=== PATIENT | female | born 1960 | race Caucasian/White ===

== ENCOUNTER 2021-03-31 01:39 | Day surgery (SDC) | payer BC, SELFPAY ==
[2021-03-25 12:09] VITALS: BMI 38.6
--- NOTE | 2021-03-25 12:24 | PC.NURSE ---
Report to the Outpatient Waiting Room, entrance under the green pavilion located off [facility], at time 0815 on date 03/28/21. OR Time: 1015. - You will be asked a series of questions to screen for COVID 19 for your protection. - A mask is required within the hospital. - No visitors are allowed at this time. Preoperative COVID Testing Requirements: No COVID Test needed if: (proof is required; if not received patient will have Rapid Test prior to entry) - Patient has received COVID Vaccine at least 14 days prior to procedure date or - Patient has positive COVID test result within last 90 days of surgery date. COVID Test needed if above criteria is not met Patients may have clear liquids (water, carbonated beverages, clear teas, apple juice) until 3 hours prior to surgery with a maximum of 20 ounces. - No food from midnight until time of surgery Take the following medications with a SIP of water the morning of surgery: ATENOLOL, PRISTIQ, XANAX, TRAMADOL, TYLENOL (IF NEEDED) Medications to discontinue per physician: VITAMINS/SUPPLEMENTS Date to take last dose: 03/27/21 Please no make-up, nail hungarian, hairspray, perfume, deodorant, or body powder the day of surgery. No jewelry (including any body piercings) or valuables the day of surgery, leave them at home. Please take a shower or bath the night before, or the morning of, surgery with an antibacterial soap. Wear comfortable, loose fitting clothing. - Jewelry must be removed prior to entering the operating room. Rings and piercings that are not removed may be cut off. - The hospital will not accept responsibility for valuables. - Please leave all valuables, including medications, at home the day of surgery. If you are going home after surgery, a licensed cdl a driver must drive you home. - NO public transportation without another adult. - We recommend that an adult stay with you for 24 hours following discharge. - We also recommend that you do not drive, make important decision, drink alcoholic beverages, or take any drugs that were not prescribed by your health care provider for at least 24 hours after your discharge time. Follow any additional instructions given to you from your surgeon. Telephone instructions given to TORRES VAZQUEZ and asked if any additional questions and then verbalized understanding. Patient advised to call surgeon office or pre surgery nurse liaison [phone] if any additional questions.
--- NOTE | 2021-03-28 08:18 | P.HP_ITS ---
H&P: HPI History of Present Illness Date/Time: 03/28/21 08:18 60 yo with TRACEY Chief Complaint: TRACEY Review of Systems Review of Systems: All systems reviewed & are unremarkable except as noted in HPI and below [facility] Social History Social History Smoking status: Never smoker Alcohol intake: current Alcohol use details: RARE Substance use: never Substance use type: does not use Living arrangements: with family Spiritual care concerns: No Meds Home Medications and Allergies Home Medications Medication Instructions Recorded Confirmed Type acetaminophen [Tylenol Extra 1,000 mg PO DAILY 03/25/21 03/25/21 History Strength] alprazolam [Xanax] 0.5 mg PO BID PRN 03/25/21 03/25/21 History atenolol 25 mg PO DAILY 03/25/21 03/25/21 History calcium citrate-vitamin D3 1 tablet PO DAILY 03/25/21 03/25/21 History [Citracal plus D] cholecalciferol (vitamin D3) 125 mcg PO DAILY 03/25/21 03/25/21 History [Vitamin D3] desvenlafaxine succinate [Pristiq] 50 mg PO DAILY 03/25/21 03/25/21 History glucosamine-chondroitin [Osteo 1 tablet PO DAILY 03/25/21 03/25/21 History Bi-Flex] latanoprost 1 drp EACH EYE QPM 03/25/21 03/25/21 History lisinopril 20 mg PO DAILY 03/25/21 03/25/21 History loratadine [Claritin] 10 mg PO DAILY 03/25/21 03/25/21 History mv-mn-folic ac-vit K-herb 289 1 tablet PO DAILY 03/25/21 03/25/21 History [Alive Once Daily Women 50 Plus] pseudoephedrine HCl [Sudafed 12 120 mg PO Q12H PRN 03/25/21 03/25/21 History Hour] rosuvastatin [Crestor] 5 mg PO DAILY 03/25/21 03/25/21 History tramadol 50 mg PO Q6H PRN 03/25/21 03/25/21 History vitamin A-vitamin C-vit E-min 1 tablet PO DAILY 03/25/21 03/25/21 History [Ocuvite] Allergies Allergy/AdvReac Type Severity Reaction Status Date / Time butorphanol Allergy Unknown Other Verified 03/25/21 12:05 codeine Allergy Unknown Hallucinati Verified 03/25/21 12:05 ng ibuprofen Allergy Unknown Other Verified 03/25/21 12:05 oxycodone Allergy Unknown Hallucinati Verified 03/25/21 12:05 ng Exam Narrative: + urethral mobilty 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
[2021-03-31] VITALS (9 sets, daily range): BP systolic 138–162; BP diastolic 63–94; PULSE 78–100; RESP 7–18; TEMP 36.2–36.9; O2SAT 94–100
--- NOTE | 2021-03-31 07:20 | WPDHPUPDATE1 ---
History and Physical Update Update Date/Time: 03/31/21 07:20 History and Physical has been reviewed, including an updated exam of the patient. There are NO changes in the patient's condition. Risks, benefits, and alternatives have been discussed and questions answered. Patient agrees to proceed with procedure.
--- NOTE | 2021-03-31 07:33 | WPDHPUPDATE1 ---
History and Physical Update Update Date/Time: 03/31/21 07:33 History and Physical has been reviewed, including an updated exam of the patient. There are NO changes in the patient's condition. Risks, benefits, and alternatives have been discussed and questions answered. Patient agrees to proceed with procedure.
--- NOTE | 2021-03-31 07:34 | PM.IMHP ---
H&P: HPI History of Present Illness Date/Time: 03/31/21 07:34 The patient is a 60-year-old 3 para 3 being admitted for total vaginal hysterectomy possible bilateral salpingo-oophorectomy anterior-posterior vaginal repair secondary to pelvic organ prolapse with genuine stress incontinence. In addition the patient is having a transobturator taping per Dr. Watkins. Risks of the procedure including infection, bleeding, injury to internal organs (bowel, bladder, ureters, etc.), DVT, and general anesthesia were reviewed. In addition the risks of mesh were reviewed including erosion and urinary retention. In addition, the risks of failure of the is anterior and posterior appear as well as failure of the TOT were reviewed. Patient voices understanding and agrees to proceed. Chief Complaint: Pelvic organ prolapse and stress incontinence Review of Systems Genitourinary: Genitourinary: Reports nocturia and Reports other (Constant pelvic pressure; stress incontinence) PMFSH Past Medical History Medical History (Updated 03/31/21 @ 07:43 by Adenike Boyd MD) Anxiety Depression Elevated cholesterol HTN (hypertension) (normal spontaneous vaginal delivery) x3 Surgical History Surgical History (Updated 03/31/21 @ 07:40 by Adenike Boyd MD) H/O bone graft Left hip H/O hand surgery Social History Social History Smoking status: Never smoker Alcohol intake: current Alcohol use details: RARE Substance use: never Substance use type: does not use Living arrangements: with family Spiritual care concerns: No Meds Home Medications and Allergies Home Medications Medication Instructions Recorded Confirmed Type acetaminophen [Tylenol Extra 1,000 mg PO DAILY 03/25/21 03/25/21 History Strength] alprazolam [Xanax] 0.5 mg PO BID PRN 03/25/21 03/25/21 History atenolol 25 mg PO DAILY 03/25/21 03/25/21 History calcium citrate-vitamin D3 1 tablet PO DAILY 03/25/21 03/25/21 History [Citracal plus D] cholecalciferol (vitamin D3) 125 mcg PO DAILY 03/25/21 03/25/21 History [Vitamin D3] desvenlafaxine succinate [Pristiq] 50 mg PO DAILY 03/25/21 03/25/21 History glucosamine-chondroitin [Osteo 1 tablet PO DAILY 03/25/21 03/25/21 History Bi-Flex] latanoprost 1 drp EACH EYE QPM 03/25/21 03/25/21 History lisinopril 20 mg PO DAILY 03/25/21 03/25/21 History loratadine [Claritin] 10 mg PO DAILY 03/25/21 03/25/21 History mv-mn-folic ac-vit K-herb 289 1 tablet PO DAILY 03/25/21 03/25/21 History [Alive Once Daily Women 50 Plus] pseudoephedrine HCl [Sudafed 12 120 mg PO Q12H PRN 03/25/21 03/25/21 History Hour] rosuvastatin [Crestor] 5 mg PO DAILY 03/25/21 03/25/21 History tramadol 50 mg PO Q6H PRN 03/25/21 03/25/21 History vitamin A-vitamin C-vit E-min 1 tablet PO DAILY 03/25/21 03/25/21 History [Ocuvite] Allergies Allergy/AdvReac Type Severity Reaction Status Date / Time butorphanol Allergy Unknown Other Verified 03/25/21 12:05 codeine Allergy Unknown Hallucinati Verified 03/25/21 12:05 ng ibuprofen Allergy Unknown Other Verified 03/25/21 12:05 oxycodone Allergy Unknown Hallucinati Verified 03/25/21 12:05 ng Exam Const: General: healthy appearing and alert Orientation/consciousness: patient oriented x3 GI: GI Palp: Yes Soft to palpation, No Tenderness to palpation present (GI) and No Palpable mass present : External Female Exam: normal external appearance Speculum Exam - Vagina: normal vaginal discharge and other (Cystocele; rectocele) Speculum Exam - Cervix: normal appearance of the cervix Bimanual exam- vagina & uterus: uterine size normal, consistency normal and other (Uterus +2 from the spines with Valsalva) Bimanual Exam- Adnexa, other: normal adnexae and No adnexal tenderness Neuro: General: patient oriented x3 Assessment and Plan Assessment and plan (1) Uterine prolapse: Code(s): N81.4
[2021-03-31] MEDS: ACETAMINOPHEN 500 MG TABLET 1000 MG PO (09:22)
[2021-03-31] MEDS: LACTATED RINGERS 1,000 ML 30 ML IV CONT ×2 (09:34→14:04)
--- NOTE | 2021-03-31 10:50 | WPDANESEPPF ---
Anes - Initial Pre Proc Eval Procedure: Operation Date: 03/31/21 10:45 Proposed Procedures p Total Vaginal Hysterectomy, Possible Bilateral Salpingo-Oophorectomy, Anterior and Posterior Vaginal Repair - Adenike Boyd MD s Urethral Sling - Chemo Watkins MD Date/Time: 03/31/21 10:50 Surgeon: Adenike Boyd MD Pre Op Diagnosis: cystocele, rectocele, stress incont Patient Data Age: 60 Gender: F Height: 1.56 m Weight: 95.6 kg Last Vital Signs Temp 36.4 C 03/31/21 09:01 Pulse 78 03/31/21 09:01 Resp 16 03/31/21 09:01 BP 146/80 H 03/31/21 09:01 Pulse Ox 97 03/31/21 09:01 Allergies Allergy/AdvReac Type Severity Reaction Status Date / Time butorphanol Allergy Intermediate Other Verified 03/31/21 09:13 codeine Allergy Intermediate Palpitation Verified 03/31/21 09:13 s ibuprofen Allergy Intermediate Other Verified 03/31/21 09:13 oxycodone Allergy Intermediate Hallucinati Verified 03/31/21 09:13 ng adhesive tape Allergy Mild Rash Verified 03/31/21 09:18 Home Medications Medication Instructions Recorded Confirmed Type acetaminophen [Tylenol Extra 1,000 mg PO DAILY 03/25/21 03/31/21 History Strength] alprazolam [Xanax] 0.5 mg PO BID PRN 03/25/21 03/31/21 History atenolol 25 mg PO DAILY 03/25/21 03/31/21 History calcium citrate-vitamin D3 1 tablet PO DAILY 03/25/21 03/31/21 History [Citracal plus D] cholecalciferol (vitamin D3) 125 mcg PO DAILY 03/25/21 03/31/21 History [Vitamin D3] desvenlafaxine succinate [Pristiq] 50 mg PO DAILY 03/25/21 03/31/21 History glucosamine-chondroitin [Osteo 1 tablet PO DAILY 03/25/21 03/31/21 History Bi-Flex] latanoprost 1 drp EACH EYE QPM 03/25/21 03/31/21 History lisinopril 20 mg PO DAILY 03/25/21 03/31/21 History loratadine [Claritin] 10 mg PO DAILY 03/25/21 03/31/21 History mv-mn-folic ac-vit K-herb 289 1 tablet PO DAILY 03/25/21 03/31/21 History [Alive Once Daily Women 50 Plus] pseudoephedrine HCl [Sudafed 12 120 mg PO Q12H PRN 03/25/21 03/31/21 History Hour] rosuvastatin [Crestor] 5 mg PO DAILY 03/25/21 03/31/21 History tramadol 50 mg PO Q6H PRN 03/25/21 03/31/21 History vitamin A-vitamin C-vit E-min 1 tablet PO DAILY 03/25/21 03/31/21 History [Ocuvite] Laboratory Tests 03/31/21 09:06 Blood Type A Negative Antibody Screen Pending Patient hx anesthesia problems: none Family hx anesthesia problems: none Results Review: All pre-operative results and documents have been reviewed as part of the pre-operative evaluation. PMFSH Past Medical History Medical History Anxiety Depression Elevated cholesterol HTN (hypertension) (normal spontaneous vaginal delivery) x3 Surgical History Surgical History H/O bone graft Left hip H/O hand surgery Social History Social History Smoking status: Never smoker Alcohol intake: current Alcohol use details: RARE Substance use: never Substance use type: does not use Living arrangements: with family Spiritual care concerns: No Anes - Eval Final PreProcedure Day of Procedure 03/31/21 10:50 Patient weight: obese Heart: regular rate and rhythm Lungs: clear to auscultation Airway: Mallampati scale class II Neurological: alert and oriented Last oral intake: >/= 8 hours ASA classification: III Emergent: no Anesthetic plan: proceed Anesthesia type and monitoring: general ETT and standard monitoring Results Review: All pre-operative results and documents have been reviewed as part of the pre-operative evaluation. Informed Consent: The patient's anesthetic plan and its attendant risks and benefits were discussed with the patient/family/POA. Questions were solicited and answers provided to the satisfaction of the patient/family/POA.
--- NOTE | 2021-03-31 10:51 | SUR.PREOP ---
1050 informed pt delay in procedure.
[2021-03-31] MEDS: ceFAZolin 2 GM/D5W 50 ML 2 GM/50 ML BAG IVPB (11:50)
--- NOTE | 2021-03-31 13:25 | W.PM.PROC2 ---
Procedure Note - Detailed Date of Procedure 03/31/21 Pre-op Diagnosis cystocele, rectocele, uterine prolapse, stress incontinence Post-op Diagnosis same (Plus enterocele) Procedure Performed Total vaginal hysterectomy anterior-posterior vaginal repair see Dr. Kong op note for transobturator taping Surgeon Adenike Boyd MD Anesthesia general Findings Second degree small cystocele; rectocele 2cm past the introitus the rest; upper portion of the rectocele was noted to also have an enterocele; uterus prolapsed to +2 from the spines Description of Procedure The patient was taken to the operating room and placed under anesthesia in the dorsal lithotomy position. She was prepped and draped in the usual sterile fashion. The cervix is grasped on the anterior lip with a tenaculum and the short weighted speculum was placed posterior. The Honey retractor was used anteriorly. The cervix is injected in a circumferential manner with 1% lidocaine with epinephrine. The vaginal mucosa is a incised in a circumferential manner around the cervix. The vaginal mucosa was dissected off anteriorly using sharp and blunt dissection until the peritoneum is entered. The Honey retractors then replaced. The posterior vaginal mucosa is dissected off the cervix using sharp and blunt dissection until the peritoneum was entered. The long curved weighted speculum was then placed. The uterosacral and cardinal ligaments are serially clamped, transected, and suture ligated with 0 Vicryl. These were tagged for future use. The uterine vessels are clamped, transected, and suture ligated with 0 Vicryl. The utero-ovarian ligaments and round ligaments are clamped, transected, and suture ligated with 0 Vicryl. The tubes and ovaries are not visible except for the proximal portion of the tube. Grasping this pedicle does not bring the tube or ovary into the field. Decision was made to leave tubes and ovaries. All pedicles appeared hemostatic. The short weighted speculum was replaced and the posterior peritoneum grasped with a Peon. The anterior peritoneum was grasped with a Peon. The peritoneum was closed using 0 Ethibond in a pursestring fashion incorporating the previously tagged uterosacral and cardinal ligaments. The vaginal cuff was then closed using 0 Vicryl in a running locked fashion. Attention is turned to the rectocele where at 5 and 7:00 a.m. on the hymenal ring is grasped with Allis clamps. The intervening tissue was incised with a scalpel and a triangular portion of tissue was excised using a scalpel. The vaginal mucosa is injected in the midline and dissected off the midline using Metzenbaum scissors. The vaginal mucosa is incised and clasped with Allis clamps until the apex was reached and then a single Allis clamp was placed at the apex. The lateral vaginal mucosa was dissected off the rectocele and enterocele using sharp and blunt dissection. The enterocele and rectocele are reduced using 0 Ethibond interrupted where spinal mattress sutures. Once the right suárez is complete the excess vaginal mucosa is excised using Metzenbaum scissors. The vaginal mucosa was closed using 0 Vicryl in a running locked fashion. Once the hymenal ring was reached the suture was placed below the hymenal ring and two deep stitches were used to bring the perineal body back together. The same suture was then used to close the perineum in a subcuticular fashion. Attention is then turned to the cystocele the base is grasped at 5 and 7:00 a.m. with the intervening tissue incised with a scalpel. The midline is injected with 1% lidocaine with epinephrine. The cystocele was dissected off the midline using Metzenbaum size. The mucosa is incised and grasped with Allis clamps. The dissection was continued until approximately 2cm below the urethra. An Allis clamp was placed at the midline. Lateral dissection was performed using sharp and blunt dissection. The cystocele was reduced using 0 Ethib
[2021-03-31] MEDS: BUPIVACAINE/EPINEPHRINE 0.25% 10 ML VIAL INFILTRATE (13:40)
[2021-03-31] MEDS: LIDO 1%/EPINEPHRINE/PF 1:200,000 30 ML VIAL XX (13:41)
--- NOTE | 2021-03-31 14:04 | P.OP_ITS ---
Procedure Note - Detailed Date of Procedure 03/31/21 Pre-op Diagnosis Stress incontinence Post-op Diagnosis same Procedure Performed mid urethral sling cystoscopy Surgeon Chemo Watkins MD Indications This is a female with confirm stress urinary incontinence. She desires surgical correction. She understands the risks of bleeding, infection, injury to the urinary tract, vaginal mesh extrusion, urinary tract mesh erosion, obstructive voiding requiring a secondary procedure, hip and leg pain, dyspareunia, inability to improve overactive bladder symptoms. She agrees to proceed. 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 A time-out performed. I marked out the site of the inner thigh incisions. I anesthetized the skin and made those incisions. I anesthetized the anterior vaginal wall over the mid urethra. I made a 1 cm incision. Of note she has significant atrophic vaginitis and poor quality tissue. I dissected out laterally taking great care not to injure the urethra or vaginal wall. I passed the helical trocars. First on the left. Then on the right. I did this from the thigh incision towards the vaginal incision. The sling was connected to the trocars and brought out through the thigh incision. I tensioned the sling appropriately. I cut and the plastic sheaths. I then closed the incision with 2 0 Vicryl. On cystoscopy there is no tumors or surgical artifact. There was no surgical artifact in the urethra. Both ureters were seen to excrete clear yellow urine. I cut the excess sling material. Close incisions with glue. She was awakened and transferred to the PACU in stable condition. Implants Urethral sling Estimated Blood Loss 50 Drains No Packing No Pathology none sent Complications No immediate complications Condition stable Disposition PACU
[2021-03-31] MEDS: DEXTROSE 5%/LACTATED RINGERS 1,000 ML 125 ML IV CONT (15:31)
--- NOTE | 2021-03-31 15:47 | OBPPTRN ---
1515 Patient transferred to post room #279 via bed. Oriented to unit, room, information board, admission packet and security measures. Patient verbalizes understanding.
[2021-03-31] MEDS: LATANOPROST 0.005% OP SOLN 2.5 ML BTL 1 DROP EACH EYE (17:54)
[2021-04-01] MEDS: ACETAMINOPHEN 500 MG TABLET 1000 MG PO ×2 (02:04→09:30)
[2021-04-01 05:46] VITALS: BP 118/63; PULSE 97; RESP 18; TEMP 36.9
--- NOTE | 2021-04-01 07:44 | PM.GYNPNOP ---
L D RN - A/P Postoperative Procedures: Procedures Operation Date: 03/31/21 10:45 Actual Procedure Side Surgeon p Total Vaginal Hysterectomy, Possible Bilateral Salpingo-Oophorectomy, Anterior and Posterior Vaginal Repair Not Applicable Adenike Boyd MD s Urethral Sling Not Applicable Chemo Watkins MD Postoperative day: 1 Postoperative status: doing well and other (Voided x 1; ambulating well; tolerating diet) Postoperative plan: routine post-op care and discharge Time Spent With Patient Time: Total time spent is greater than 50% in coordination of care (as documented) at patient's floor/unit and/or counseling patient: Time with patient: less than 15 minutes L D RN- PN:Subj Post-Op Subjective Date/time seen: 04/01/21 07:44 Subjective: patient has no complaints, pain is well controlled and patient is tolerating oral intake Exam Narrative: abdomen soft, nt L D RN - PN: Obj Data Vital Signs Vital Signs: Vital Signs - 24 hr 03/31/21 09:01 03/31/21 14:04 03/31/21 14:15 Temperature 97.6 F 97.9 F Pulse Rate 78 100 96 Respiratory Rate 16 16 7 L Blood Pressure 146/80 H 162/87 H 147/84 H Pulse Oximetry 97 97 98 03/31/21 14:30 03/31/21 14:45 03/31/21 15:00 Temperature Pulse Rate 97 100 99 Respiratory Rate 17 16 12 Blood Pressure 139/94 H 147/86 H 140/79 Pulse Oximetry 100 94 95 03/31/21 15:15 03/31/21 19:03 03/31/21 23:50 Temperature 97.1 F L 98.2 F 98.5 F Pulse Rate 95 97 87 Respiratory Rate 18 16 18 Blood Pressure 153/81 H 144/63 H 138/76 Pulse Oximetry 94 99 04/01/21 05:46 Temperature 98.4 F Pulse Rate 97 Respiratory Rate 18 Blood Pressure 118/63 Pulse Oximetry Intake/Output Intake/Output: Intake & Output 03/29/21 03/30/21 03/31/21 04/01/21 23:59 23:59 23:59 23:59 Intake Total 1450 500 Output Total 650 3650 Balance 800 -3150 Meds/Results Medications: Active Medications Generic Name Dose Route Start Last Admin Trade Name Freq PRN Reason Stop Dose Admin Acetaminophen 1,000 mg 03/31/21 15:08 04/01/21 02:04 Acetaminophen 500 Mg Tablet PO 1,000 mg Q6H PRN Administration Mild Pain (1-3) or Fever Alprazolam 0.5 mg 03/31/21 15:08 Alprazolam (*Crx) 0.5 Mg Tablet PO BID PRN Anxiety Atenolol 25 mg 04/01/21 09:00 Atenolol 25 Mg Tablet PO DAILY [facility] Desvenlafaxine Succinate 50 mg 04/01/21 09:00 Desvenlafaxine Succinate 50 Mg Tab.Er.24h PO DAILY [facility] Acetaminophen 1,000 mg in 100 mls @ 400 mls/hr 03/31/21 13:41 03/31/21 19:24 Ofirmev 1,000 Mg Ivpb IVPB 04/01/21 13:40 Infused Q6-8H PRN Infusion pain Fentanyl Citrate 600 mcg in 30 mls @ 0.5 mls/hr 03/31/21 15:08 Fentanyl 600 Mcg/Ns 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 CONT .Q24H PRN [employer] Management Protocol 10 MCG/HR Latanoprost 1 drop 03/31/21 18:00 03/31/21 17:54 Latanoprost 0.005% Op Soln 2.5 Ml Btl EACH EYE 1 drop QPM SRINIVASA Administration Lisinopril 20 mg 04/01/21 09:00 Lisinopril 20 Mg Tablet PO DAILY [facility] Loratadine 10 mg 04/01/21 09:00 Loratadine 10 Mg Tablet PO DAILY [facility] Naloxone HCl 0.1 mg 03/31/21 15:08 Naloxone Hcl 0.4 Mg/Ml Vial IV PUSH Q2M PRN Respiratory rate less than 10 Ondansetron HCl 4 mg 03/31/21 15:08 Ondansetron Inj 4 Mg/2 Ml Vial IV PUSH Q6H PRN Nausea And Vomiting Rosuvastatin Calcium 5 mg 04/01/21 09:00 Rosuvastatin 5 Mg Tablet PO DAILY [facility] Labs Labs: Laboratory Results - last 24 hr 03/31/21 09:06 Blood Type A Negative Antibody Screen Negative
--- NOTE | 2021-04-01 07:45 | PM.DS ---
DS: Admitting Diagnosis Discharge Date 04/01/21 Admitting Diagnosis Pelvic organ prolapse; GSI DS: Discharge Diagnosis Discharge Diagnosis (1) Uterine prolapse: Code(s): N81.4 - Uterovaginal prolapse, unspecified Status: Acute (2) Rectocele: Code(s): N81.6 - Rectocele Status: Acute (3) Cystocele: Status: Acute (4) TRACEY (stress urinary incontinence, female): Code(s): N39.3 - Stress incontinence (female) (male) Status: Acute Assessment and Plan: s/p midurethral sling (5) History of total vaginal hysterectomy (TVH): Code(s): Z90.710 - Acquired absence of both cervix and uterus Status: Acute DS: Summary Hospital Course Hospital Course: Tolerating diet, voiding, and ambulating well. Status at Discharge Functional status at discharge: independent ambulation Overall status at discharge: patient is progressing back to baseline Time Spent with Patient Time attestation: Total time spent providing and/or coordinating discharge services: DS: Data Data Completed and Pending Pending studies at discharge: Pending at discharge 03/31/21 13:02 Surgical [PTH] Routine Labs on day of discharge: Labs from last 24 hours 03/31/21 09:06 Blood Type A Negative Antibody Screen Negative Discharge Plan Discharge Patient Disposition: Home, Self-Care Stand Alone Forms: General Discharge Instructions Follow-up/Referrals: Adenike Boyd MD [Physician] - 1 Week Discharge Medications: New docusate sodium [Colace] 100 mg capsule 100 mg PO BID Qty: 60 RF: 0 Continued latanoprost 0.005 % Drops 1 drp EACH EYE QPM RF: 0 lisinopril 20 mg Tablet 20 mg PO DAILY RF: 0 atenolol 25 mg Tablet 25 mg PO DAILY RF: 0 pseudoephedrine HCl [Sudafed 12 Hour] 120 mg Tablet Extended Release 120 mg PO Q12H PRN (Reason: Allergic Symptoms) RF: 0 tramadol 50 mg Tablet 50 mg PO Q6H PRN (Reason: Pain) RF: 0 acetaminophen [Tylenol Extra Strength] 500 mg Tablet 1,000 mg PO DAILY RF: 0 alprazolam [Xanax] 0.5 mg Tablet 0.5 mg PO BID PRN (Reason: Anxiety) RF: 0 loratadine [Claritin] 10 mg Tablet 10 mg PO DAILY RF: 0 vitamin A-vitamin C-vit E-min Tablet 1 tablet PO DAILY RF: 0 glucosamine-chondroitin [Osteo Bi-Flex] 250-200 mg Tablet 1 tablet PO DAILY RF: 0 rosuvastatin [Crestor] 5 mg Tablet 5 mg PO DAILY RF: 0 calcium citrate-vitamin D3 315 mg-5 mcg (200 unit) Tablet 1 tablet PO DAILY RF: 0 desvenlafaxine succinate [Pristiq] 50 mg Tablet Extended Release 24 Hr 50 mg PO DAILY RF: 0 cholecalciferol (vitamin D3) [Vitamin D3] 125 mcg (5,000 unit) Tablet 125 mcg PO DAILY RF: 0 Alive Once Daily Women 50 Plus 800-100 mcg Tablet 1 tablet PO DAILY RF: 0
[2021-04-01 07:50] VITALS: BP 118/60; PULSE 84; RESP 16; TEMP 37.6; O2SAT 96
[2021-04-01 09:32] VITALS: PULSE 88
[2021-04-01] MEDS: atenoloL 25 MG TABLET PO (09:32)
[2021-04-01] MEDS: LORATADINE 10 MG TABLET PO (09:33)
[2021-04-01] MEDS: lisinopriL 20 MG TABLET PO (09:33)
[2021-04-01] MEDS: DESVENLAFAXINE SUCCINATE 50 MG TAB.ER.24H PO (09:34)
[2021-04-01] MEDS: ROSUVASTATIN 5 MG TABLET PO (09:34)
--- NOTE | 2021-04-01 12:43 | WPDANESPN ---
Anes - Prog Note Post-Op Date/Time: 04/01/21 12:43 Cardiovascular status: normal Respiratory status: normal Airway patency: baseline Mental status: baseline Post-Op hydration status: normal Vital Signs: Last Vital Signs Temp 37.6 C 04/01/21 07:50 Pulse 88 04/01/21 09:32 Resp 16 04/01/21 07:50 BP 118/60 04/01/21 07:50 Pulse Ox 96 04/01/21 07:50 Pain Score (VAS): 03/10 I/O: Intake & Output 03/31/21 04/01/21 04/01/21 23:59 07:59 15:59 Intake Total 1100 500 Output Total 350 3650 Balance 750 -3150 Post-procedural complaints: none Patient Feedback: Patient satisfied with anesthetic care.
--- NOTE | 2021-04-01 19:21 | PC.NURSE ---
0920 pt urinated twice already 300cc total. Informed her to call out next time she needs to void so we can use the bladder scan. She V/U'd.
--- NOTE | 2021-04-01 19:23 | PC.NURSE ---
everything charted for 190 should be for [id number]
== END 2021-04-01 12:40 | disposition home or self-care (01) ==
LOC: ANHSURGERY 08:51 → ANHOB2 15:11
PROVIDERS: Urology; PCP Internal Medicine; Visit Provider Obstetrics & Gynecology Gynecology
PROC: (CPT 58260; principal; 2021-03-31 10:45)
PROC: (CPT 57288; 2021-03-31 10:45)
DX: N81.2 Incomplete uterovaginal prolapse (principal); N39.3 Stress incontinence (female) (male); I10 Essential (primary) hypertension; E78.00 Pure hypercholesterolemia, unspecified; F41.8 Other specified anxiety disorders; E66.9 Obesity, unspecified; Z68.39 Body mass index [BMI] 39.0-39.9, adult
CPT/HCPCS: 57260; 58260; 57288; 36415; 86850; 86900; 86901; 88307; 99199; A9270; C1771; J0131; J0690; J1100; J1170; J2250; J2405; J2704; J3010; J7030; J7120; J7121

== ENCOUNTER 2023-11-30 02:13 | Day surgery (SDC) | payer OTHER, SELFPAY ==
[2023-11-09 08:32] VITALS: BMI 42.9
[2023-11-30 10:20] VITALS: BP 139/62; PULSE 78; RESP 16; TEMP 36.6; O2SAT 100; BMI 41.9
[2023-11-30] MEDS: LACTATED RINGERS 1,000 ML 30 ML IV CONT (10:54)
[2023-11-30 10:55] LABS: Glucose Point of Care 99 mg/dl (65-105)
--- NOTE | 2023-11-30 11:08 | WPDANESEPPF ---
Anes - Initial Pre Proc Eval Procedure: Operation Date: 11/30/23 11:30 Proposed Procedures p Screening Colonoscopy - Lloyd Coy DO Date/Time: 11/30/23 11:08 Surgeon: Lloyd Coy DO Pre Op Diagnosis: Screening for malignant neoplasm of colon Patient Data Age: 63 Gender: F Height: 1.55 m Weight: 100.7 kg Last Vital Signs Temp 97.9 F 11/30/23 10:20 Pulse 78 11/30/23 10:20 Resp 16 11/30/23 10:20 BP 139/62 11/30/23 10:20 Pulse Ox 100 11/30/23 10:20 O2 Del Method Room Air 11/30/23 10:20 Allergies Allergy/AdvReac Type Severity Reaction Status Date / Time butorphanol Allergy Intermediate Other Verified 11/30/23 10:33 codeine Allergy Intermediate Palpitation Verified 11/30/23 10:33 s ibuprofen Allergy Intermediate Other Verified 11/30/23 10:33 oxycodone Allergy Intermediate Hallucinati Verified 11/30/23 10:33 ng adhesive tape Allergy Mild Rash Verified 11/30/23 10:33 rosuvastatin [From Crestor] AdvReac Muscle Pain Verified 11/30/23 10:33 Home Medications Medication Instructions Recorded Confirmed Type acetaminophen 500 mg tablet 1,000 mg PO DAILY 03/25/21 11/30/23 History (Tylenol Extra Strength) calcium 315 mg (as 1 tablet PO DAILY 03/25/21 11/30/23 History citrate)-vitamin D3 5 mcg (200 unit) tablet cholecalciferol (vitamin D3) 125 125 mcg PO DAILY 03/25/21 11/30/23 History mcg (5,000 unit) tablet (Vitamin D3) glucosamine-chondroitin 250 mg-200 1 tablet PO DAILY 03/25/21 11/30/23 History mg tablet (Osteo Bi-Flex) latanoprost 0.005 % eye drops 1 drp EACH EYE QPM 03/25/21 11/30/23 History loratadine 10 mg tablet (Claritin) 10 mg PO DAILY 03/25/21 11/30/23 History multivit,mineral-folic acid 800 1 tablet PO DAILY 03/25/21 11/30/23 History mcg-vit K 100 mcg-herbal no.289 tablet (Alive Once Daily Women 50 Plus) vitamin A-vitamin C-vit E-min 1 tablet PO DAILY 03/25/21 11/30/23 History tablet albuterol sulfate 2.5 mg/3 mL 2.5 mg (3 mL) inhalation Q6H PRN 12/01/21 11/30/23 Rx (0.083 %) solution for nebulization shortness of breath or wheezing #75 mL cyclobenzaprine 10 mg tablet See Rx Instructions PO TID PRN 07/14/22 11/30/23 Rx muscle spasm #30 tabs tramadol 50 mg tablet 50 mg PO Q6H PRN Pain #30 tabs 07/14/22 11/30/23 Rx albuterol sulfate 90 mcg/actuation 2 inh inhalation Q4H PRN shortness 05/12/23 11/30/23 Rx aerosol inhaler (Ventolin HFA) of breath or wheezing #6.7 grams desvenlafaxine succinate 50 mg 75 mg PO DAILY 05/12/23 11/30/23 History tablet,extended release 24 hr (Pristiq) timolol maleate 0.5 % eye drops 1 drp EACH EYE DAILY #5 mL 05/14/23 11/30/23 Rx alprazolam 0.5 mg tablet (Xanax) 0.5 mg PO BID PRN Anxiety #60 tabs 08/18/23 11/30/23 Rx pseudoephedrine HCl 120 mg 120 mg PO Q12H PRN Allergic 08/18/23 11/30/23 Rx tablet,extended release (Sudafed Symptoms #180 tabs 12 Hour) docusate sodium 100 mg capsule 100 mg PO DAILY 09/14/23 11/30/23 History (Colace) ezetimibe 10 mg tablet (Zetia) 10 mg PO DAILY #90 tabs 09/14/23 11/30/23 Rx lisinopril 20 mg tablet 20 mg PO DAILY #90 tabs 09/14/23 11/30/23 Rx meloxicam 7.5 mg tablet 7.5 mg PO DAILY #90 tabs 09/14/23 11/30/23 Rx metformin 500 mg tablet,extended 500 mg PO DAILY #90 tabs 09/15/23 11/30/23 Rx release 24 hr atenolol 25 mg tablet See Rx Instructions PO DAILY #45 09/21/23 11/30/23 Rx tabs Laboratory Tests 11/30/23 10:52 POC Capillary Glucose 99 mg/dl (65-105) Patient hx anesthesia problems: none Family hx anesthesia problems: none Results Review: All pre-operative results and documents have been reviewed as part of the pre-operative evaluation. [facility] Past Medical History Medical History Anxiety Conjunctival cyst Depression Discoloration of skin of face Elevated cholesterol HTN (hypertension) Lipoma of upper arm Moll's gland cyst (normal sp
--- NOTE | 2023-11-30 11:24 | PM.IMHP ---
H&P: HPI History of Present Illness Date/Time: 11/30/23 11:24 Chief Complaint: screening for colorectal cancer Narrative: this is a 63-year-old woman who presents for colonoscopy. Her last colonoscopy was 10 years ago. She reports this was normal. She denies any hematochezia or melena. She denies any family history of colon cancer. Review of Systems Review of Systems: All systems reviewed & are unremarkable except as noted in HPI and below Constitutional: Constitutional: Denies chills, Denies fever(s), Denies headache(s) and Denies weight loss Eyes: Eyes: Denies change in vision ENT: Denies dizziness, Denies headache(s), Denies neck mass and Denies throat swelling Cardiovascular: Cardiovascular: Denies chest pain, Denies lightheadedness and Denies dyspnea Respiratory: Respiratory: Denies cough, Denies dyspnea and Denies wheezing Gastrointestinal: Gastrointestinal: Denies abdominal pain, Denies change in bowel habits, Denies nausea and Denies vomiting Genitourinary: Genitourinary: Denies hematuria and Denies dysuria Musculoskeletal: Musculoskeletal: Reports as per HPI Integumentary/Breasts: Skin/Breast: Reports as per HPI Neurologic: Denies dizziness and Denies headache(s) Allergic/Immunologic: Allergic/Immunologic: Denies throat swelling and Denies wheezing PMFSH Past Medical History Medical History Anxiety Conjunctival cyst Depression Discoloration of skin of face Elevated cholesterol HTN (hypertension) Lipoma of upper arm Moll's gland cyst (normal spontaneous vaginal delivery) x3 Subcutaneous mass Surgical History Surgical History H/O bone graft Left hip H/O hand surgery Left 1996 History of cataract extraction left 10/12/17 History of eyelid surgery History of hysterectomy 03/31/21 History of pelvic surgery repaired cystocele and rectocele 03/31/21 History of total vaginal hysterectomy (TVH) with A&P repair Social History Social History Smoking status: Never smoker Second hand tobacco smoke exposure: No Alcohol intake: never Alcohol use details: RARE Substance use: never Substance use type: does not use Lack of Transportation: No Lack of Food: Never True Current Housing: I Have Housing Concerned About Future Housing: No Difficulty Paying Gas/Electric Bills: No Difficulty Paying for Meds: No Currently Unemployed: No Education: Associate Degree Difficulty w/ Childcare or Family Care: No Living arrangements: with family 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 Gender identity (if verbalized by the patient): Female Sexual Orientation (if Verbalized by the Patient): Straight or Heterosexual Spiritual care concerns: No Meds Home Medications and Allergies Home Medications Medication Instructions Recorded Confirmed Type acetaminophen 500 mg tablet 1,000 mg PO DAILY 03/25/21 11/30/23 History (Tylenol Extra Strength) calcium 315 mg (as 1 tablet PO DAILY 03/25/21 11/30/23 History citrate)-vitamin D3 5 mcg (200 unit) tablet cholecalciferol (vitamin D3) 125 125 mcg PO DAILY 03/25/21 11/30/23 History mcg (5,000 unit) tablet (Vitamin D3) glucosamine-chondroitin 250 mg-200 1 tablet PO DAILY 03/25/21 11/30/23 History mg tablet (Osteo Bi-Flex) latanoprost 0.005 % eye drops 1 drp EACH EYE QPM 03/25/21 11/30/23 History loratadine 10 mg tablet (Claritin) 10 mg PO DAILY 03/25/21 11/30/23 History multivit,mineral-folic acid 800 1 tablet PO DAILY 03/25/21 11/30/23 History mcg-vit K 100 mcg-herbal no.289 tablet (Alive Once Daily Women 50 Plus) vitamin A-vitamin C-vit E-min 1 tablet PO DAILY 03/25/21 11/30/23 History tablet albuterol sulfate 2.5 mg/3 mL 2.5 mg (3 mL) inhalation Q6H PRN 12/01/21
[2023-11-30 11:53] VITALS: BP 103/62; PULSE 74; RESP 22; O2SAT 99
[2023-11-30 12:03] VITALS: BP 107/59; PULSE 75; RESP 23; O2SAT 99
[2023-11-30 12:13] VITALS: BP 115/65; PULSE 74; RESP 25; O2SAT 99
== END 2023-11-30 12:25 | disposition home or self-care (01) ==
PROVIDERS: PCP Physician Assistant Medical; Visit Provider Surgery
PROC: 0DJD8ZZ Inspection of Lower Intestinal Tract, Via Natural or Artificial Opening Endoscopic (ICD-10-PCS; CPT 45378; principal; 2023-11-30 11:30)
DX: Z12.11 Encounter for screening for malignant neoplasm of colon (principal); D12.2 Benign neoplasm of ascending colon; I10 Essential (primary) hypertension; E78.00 Pure hypercholesterolemia, unspecified; F41.9 Anxiety disorder, unspecified; F32.A Depression, unspecified; E66.01 Morbid (severe) obesity due to excess calories; Z68.41 Body mass index [BMI] 40.0-44.9, adult; Z79.51 Long term (current) use of inhaled steroids; Z79.891 Long term (current) use of opiate analgesic; Z79.84 Long term (current) use of oral hypoglycemic drugs; Z98.890 Other specified postprocedural states; Z86.018 Personal history of other benign neoplasm
CPT/HCPCS: 45385; 82948; 88305; J2003; J2371; J2704; J7120

== ENCOUNTER 2024-07-07 09:08 | Outpatient (CLI) | payer OTHER, SELFPAY ==
--- NOTE | ~2024-07-07 | CT_ITS ---
CT of the Abdomen and Pelvis: Indication: Abdominal pain Technique: 2.5 mm axial scans were obtained through the abdomen and pelvis following intravenous adm inistration of 100 cc of Omnipaque 350. Dose reduction technique was used on this scan by utilizing a utomated exposure control and iterative reconstruction technique. The dose-length product (DLP) was 1 428.52 mGy-cm. Findings: Scans through the lung bases are unremarkable. There is diffuse hepatic steatosis. The spleen, pancreas, gallbladder, adrenals and kidneys are withi n normal limits. There are atherosclerotic calcifications of the aorta. No lymphadenopathy. No bowel obstruction or bowel wall thickening. There is no evidence to suggest acute appendicitis. Images through the pelvis were performed. Urinary bladder unremarkable. No pelvic mass seen. Status p ost hysterectomy. No ascites. Impression: No acute abnormalities seen. Diffuse hepatic steatosis. Reviewed, dictated and finalized at [facility]. Impression: No acute abnormalities seen. Diffuse hepatic steatosis.
--- OUTSIDE RECORDS SUMMARY | 2024-07-07 09:13 | XMS_ITS | Clinical Summary ---
Author Organization [facility] Address [address] [place] [address] Care Team Providers Care Neuroscientist Name Role Phone Marlee Jennings Primary Care Provider [phone] Social History Tobacco Use Types Packs/Day Years Used Date Smoking Tobacco: Never Assessed Comments Unknown Sex and Gender Information Value Date Recorded Sex Assigned at Not on file Legal Sex Female 7:58 PM CDT Gender Identity Not on file Sexual Orientation Not on file Last Filed Vital Signs Vital Sign Reading Time Taken Comments Blood Pressure 140/70 01/09/2014 4:18 PM GASTROENTEROLOGY PROFESSOR Pulse 76 01/09/2014 4:18 PM GASTROENTEROLOGY PROFESSOR Temperature - - Respiratory Rate - - Oxygen Saturation - - Inhaled Oxygen Concentration - - Weight 93 kg (205 lb) 01/09/2014 4:18 PM GASTROENTEROLOGY PROFESSOR Height 160 cm (5' 3 ) 01/09/2014 4:18 PM GASTROENTEROLOGY PROFESSOR Body Mass Index 36.31 01/09/2014 4:18 PM GASTROENTEROLOGY PROFESSOR Plan of Treatment Health Maintenance Due Date Last Done Comments Cervical Cancer Screening Pap Smear (Age 30 to 64) Every 3 Years 1961 Colorectal Cancer Screening Colonoscopy (10 Years) 1961 Annual Physical 1964 Hepatitis C 08/05/1979 DTaP, Tdap and Td Vaccines (1 - Tdap) 1980 Cervical Cancer Screening Pap with HPV Testing (Age 30 to 64) Every 5 Years 08/05/1991 Cervical Cancer Screening with HPV 08/05/1991 Pneumococcal Vaccine: 50+ Years (1 of 1 - PCV) 08/05/2011 Zoster Vaccines (1 of 2) 08/05/2011 COVID-19 Vaccine (3 - season) 2023 03/25/2020, 02/26/2020 Mammogram Screening 10/04/2025 10/05/2023, 09/29/2022, 09/16/2021, Additional history exists RSV Immunization or 60+ Years (1 - 1-dose 75+ series) 2036 Meningococcal B Vaccine Aged Out No l onger eligible based on patient's age to complete this topic Meningococcal Vaccine Aged Out No buddy paty eligible based on patient's age to complete this topic RSV Immunizations Under 20 Months Aged Out No longer eligible based on patient's age to complete this topic Procedures Procedure Name Priority Date/Time Associated Diagnosis Comments MG SCREENING W PRAVIN ALFONSO DIGI Routine 10/05/2023 6:54 AM CDT Visit for screening mammogram from Last 3 Months or Most Recently Relevant to Health Maintenance Results * MG SCREENING W PRAVIN ALFONSO DIGI (10/05/2023 6:54 AM CDT) Anatomical Region Laterality Modality Breast Bilateral Mammography 10/05/2023 9:44 AM CDT Impressions 10/05/2023 9:49 AM CDT IMPRESSION: No significant interval change. No mammographic evidence of malignancy. RECOMMENDATION: Routine ScreeningBilateral OVERALL IMAGING ASSESSMENT: ACR BI-RADS 2 - BENIGN FINDING(S). Ordered By: HUMBERTO WOODS Interpreted By: Cole Drake, 10/05/2023 9:44 AM Narrative 10/05/2023 9:49 AM CDT EXAMINATION: MG SCREENING W PRAVIN ALFONSO DIGI INDICATIONS: Screening TECHNIQUE: Digital full field CC and MLO screening mammography bilaterally to include 3-D Tomosynthesis technique. This study was read with the assistance of a computer-aided detection system. HISTORY: No reported breast complaint. No documented personal or first degree family history of breast cancer. No documented prior breast procedure. COMPARISON: Multiple prior examinations available for comparison dating back to 02/02/2006, the most recent of 09/29/2022, 09/16/2021, and 08/20/2020 TISSUE DENSITY: There are scattered areas of fibroglandular density. FINDINGS: Scattered typically benign round calcifications bilaterally. No suspicious microcalcification or mass. No developing asymmetry or architectural distortion. No axillary adenopathy. us Humberto Woods NP MAMMO Final Result from Last 3 Months or Most Recently Relevant to Health Maintenance Insurance [employer] [place] [id number] Care Teams Neuroscientist Relationship Specialty Start Date End Date Marlee Jennings PA PCP - General PHYSICIAN SENIOR ANALYST 07/30/20
[2024-07-07 09:58] LABS: Estimated Glomerular Filt Rate > 60
[2024-07-07 11:00] LABS: Basophils Absolute Auto 0.1 K/mm3 (0.0-0.1); Basophils Percent Auto 0.8 % (0.2-1.2); Eosinophils Absolute Auto 0.1 K/mm3 (0-0.3); Eosinophils Percent Auto 1.1 % (0-4.4); Hematocrit 44.7 % (37.0-47.0); Hemoglobin 14.4 g/dL (12.0-15.0); Immature Granulocyte Absolute 0.14 K/mm3 (0.00-0.031); Immature Granulocyte Percent A 1.2 % (0-0.5); Lymphocytes Absolute Auto 2.56 K/mm3 (0.9-3.2); Lymphocytes Percent Auto 22.6 % (18.3-44.2); Mean Corpuscular HGB Conc 32.2 g/dl (32-36); Mean Corpuscular Hemoglobin 30.9 pg (26-34); Mean Corpuscular Volume 95.9 fl (80-100); Mean Platelet Volume 9.8 fl (7.4-10.4); Neutrophils Absolute Auto 7.4 K/mm3 (1.3-6.7); Neutrophils Percent Auto 65.3 % (45.5-73.1); Platelet Count Result 344 k/mm3 (150-375); Red Blood Count 4.66 M/mm3 (4.2-5.4); Red Cell Distribution Width 12.9 % (11.5-14.5); White Blood Count 11.3 K/mm3 (4.5-10.0)
[2024-07-07 11:08] LABS: Alanine Aminotransferase 27 U/L (6-35); Albumin Level 4.2 g/dL (3.5-5.1); Alkaline Phosphatase 116 U/L (38-126); Anion Gap 8 mmol/L (4-12); Aspartate Amino Transferase 31 U/L (14-36); Bilirubin,Total 0.5 mg/dL (0.2-1.3); Blood Urea Nitrogen 16 mg/dL (7-17); Calcium 9.3 mg/dL (8.4-10.2); Carbon Dioxide 31 mmol/L (22-30); Chloride 99 mmol/L (98-107); Estimated Glomerular Filt Rate > 60; Glucose 89 mg/dL (65-110); Lipase 117 U/L (23-300); Potassium 4.4 mmol/L (3.4-5.0); Sodium 138 mmol/L (137-145)
== END 2024-07-07 09:09 | disposition home or self-care (01) ==
PROVIDERS: PCP Physician Assistant Medical; Visit Provider Physician Assistant Medical
DX: K76.0 Fatty (change of) liver, not elsewhere classified (principal)
CPT/HCPCS: 36415; 74177; 80053; 83690; 85025; Q9967